=== PATIENT | female | born 1980 | race Two or more races ===

== ENCOUNTER 2018-05-01 17:23 | Inpatient (IN) | payer BC ==
[~2018-05-01] VITALS: Ht 157.5 cm; Wt 86.2 kg
[2018-05-01] MEDS ORDERED: ACETAMINOPHEN 325 MG TAB PO ONE (18:00)
[2018-05-01 18:30] LABS: Basophils # (auto) 0 uL; Basophils % (auto) 0.3 % (0.0-2.0); Eosinophils # (auto) 0 uL; Hemoglobin 11.5 g/dL (12.2-16.2); Neutrophils # (auto) 9.3 uL
[2018-05-01 18:31] LABS: Eosinophils % (auto) 0.3 % (0.0-7.0); Hematocrit 35.5 % (36.0-46.0); Lymphocytes # (auto) 1.8 uL; Lymphocytes % (auto) 14.6 % (10.0-50.0); Mean Corpuscular Hemoglobin 25.4 pg (28.0-32.0); Mean Corpuscular Hgb Conc. 32.4 g/dL (32.0-36.0); Mean Corpuscular Volume 78.2 fL (80.0-100.0); Monocytes # (auto) 1.2 uL; Monocytes % (auto) 9.8 % (0.0-12.0); Platelet Count (auto) 283 10^3/uL (140-450); Red Blood Cells 4.54 10^6/uL (4.0-5.20); Red Cell Distribution Width 18.2 % (11.8-14.3); White Blood Cell 12.4 10^3/uL (4.4-10.8)
[2018-05-01 18:47] LABS: Albumin 2.5 g/dL (3.4-5.0); Amylase 51 U/L (25-115); Anion Gap 11 (5-15); BUN/Creatinine Ratio 7.2; Blood Urea Nitrogen 8 mg/dL (7-18); Calcium 8.3 mg/dL (8.5-10.1); Carbon Dioxide 20 mmol/L (21-32); Chloride 101 mmol/L (98-107); GFR African American 71 mL/min; GFR Non-African American 59 mL/min; Glucose 97 mg/dL (74-106); Lipase 161 U/L (73-393); Sodium 132 mmol/L (136-145)
[2018-05-01 19:00] LABS: Alanine Aminotransferase 56 U/L (13-56); Alkaline Phosphatase 224 U/L (45-117); Aspartate Aminotransferase 30 U/L (15-37); Bilirubin, Total 0.6 mg/dL (0.2-1.0); Total Protein 7.9 g/dL (6.4-8.2)
[2018-05-01] MEDS ORDERED: PANTOPRAZOLE 40 MG/10 ML VIAL IV ONE (19:00)
[2018-05-01] MEDS ORDERED: SODIUM CHLORIDE 0.9% 500 ML IV ONE (19:00)
[2018-05-01] MEDS ORDERED: MORPHINE SULFATE 4 MG/ML SYR/VIAL IV ONE (19:00)
[2018-05-01] MEDS ORDERED: ONDANSETRON HCL 4 MG/2 ML VIAL IV ONE (19:00)
[2018-05-01] MEDS ORDERED: LEVOFLOXACIN 500MG 100 ML IV ONE (19:30)
[2018-05-01] MEDS ORDERED: NITROGLYCERIN 0.4 MG SL TAB SL PRN (19:45)
[2018-05-01] MEDS ORDERED: DEXTROSE (50%) 50ML SYRG IV PRN (19:45)
[2018-05-01] MEDS ORDERED: MORPHINE SULFATE 4 MG/ML SYR/VIAL IV PRN ×2 (19:45)
[2018-05-01] MEDS ORDERED: cefTRIAXone 1GM/50ML D5W 50 ML IV ONE (19:45)
[2018-05-01] MEDS ORDERED: POTASSIUM EFFERVESENT TAB 25 MEQ PO ONE (19:45)
[2018-05-01] MEDS ORDERED: TEMAZEPAM 15 MG CAP PO PRN (19:45)
[2018-05-01] MEDS ORDERED: ACETAMINOPHEN 325 MG TAB PO PRN (19:45)
[2018-05-01] MEDS ORDERED: DOCUSATE SOD 100 MG CAP PO PRN (19:45)
[2018-05-01] MEDS ORDERED: VANCOMYCIN PER PHARMACY 0 MG IV SCH (19:45)
[2018-05-01] MEDS ORDERED: SODIUM CHLORIDE 0.9% 1,000 ML IV ONE (20:00)
[2018-05-01] MEDS ORDERED: VANCOMYCIN 1GM/250ML 250 ML IV ONE ×2 (20:30→22:15)
[2018-05-01] MEDS: SODIUM CHLORIDE 0.9% 1,000 ML IV SCH ×3 (20:30→23:26)
[2018-05-01 21:07] LABS: Urine Bacteria MANY /hpf (None Seen); Urine Blood 2+ /uL (Negative); Urine Specific Gravity 1.005 (1.001-1.035); Urine WBC 54 /hpf (0 - 5)
[2018-05-01] MEDS: InsuLIN REG 1unit/0.01ml Soln (100units/ml) SC SCH (22:00)
[2018-05-01] MEDS: TOPIRAMATE PO SCH (22:00)
[2018-05-01 22:03] VITALS: BP 99/61
[2018-05-01] MEDS: ONDANSETRON HCL 4 MG/2 ML VIAL IV PRN (23:00)
[2018-05-01] MEDS: FAMOTIDINE 20 MG TAB PO SCH (23:24)
[2018-05-01] MEDS: OSELTAMIVIR 75 MG CAP PO SCH (23:24)
[2018-05-01] MEDS: ACCU-CHEK COMFORT CURVE STRIP VI SCH (23:25)
[2018-05-01 23:52] VITALS: BP 99/61
[2018-05-02] VITALS (7 sets, daily range): BP systolic 83–107; BP diastolic 42–77
[2018-05-02] MEDS ORDERED: TOPI1CAP23 OR (00:06)
[2018-05-02] MEDS ORDERED: GLIM1TAB2 PO (00:06)
[2018-05-02] MEDS ORDERED: OSEL75CA11 PO (00:06)
[2018-05-02] MEDS ORDERED: guaiFENesin 200 MG/10 ML UD GT PRN (05:15)
[2018-05-02 06:01] LABS: Basophils # (auto) 0 uL; Eosinophils # (auto) 0.1 uL; Hemoglobin 10.3 g/dL (12.2-16.2); Lymphocytes # (auto) 1.7 uL; Neutrophils # (auto) 6.9 uL; Red Cell Distribution Width 17.9 % (11.8-14.3); White Blood Cell 9.7 10^3/uL (4.4-10.8)
[2018-05-02 06:03] LABS: Basophils % (auto) 0.4 % (0.0-2.0); Eosinophils % (auto) 1.1 % (0.0-7.0); Hematocrit 31.6 % (36.0-46.0); Lymphocytes % (auto) 17.6 % (10.0-50.0); Mean Corpuscular Hemoglobin 25.7 pg (28.0-32.0); Mean Corpuscular Hgb Conc. 32.5 g/dL (32.0-36.0); Mean Corpuscular Volume 79.1 fL (80.0-100.0); Monocytes % (auto) 9.8 % (0.0-12.0); Neutrophils % (auto) 71.1 % (37.0-80.0); Platelet Count (auto) 257 10^3/uL (140-450)
[2018-05-02 06:16] LABS: Calcium 7.6 mg/dL (8.5-10.1); Potassium 3.4 mmol/L (3.5-5.1)
[2018-05-02 06:19] LABS: Albumin 2.1 g/dL (3.4-5.0); BUN/Creatinine Ratio 7.6
[2018-05-02 06:32] LABS: Bilirubin, Total 0.5 mg/dL (0.2-1.0); Total Protein 6.7 g/dL (6.4-8.2)
[2018-05-02] MEDS: InsuLIN REG 1unit/0.01ml Soln (100units/ml) SC SCH ×4 (06:55→21:53)
[2018-05-02] MEDS: ACCU-CHEK COMFORT CURVE STRIP VI SCH ×4 (06:56→21:53)
[2018-05-02] MEDS ORDERED: Glucerna Carbsteady SHAKE Vanilla 8oz PO SCH (08:00)
[2018-05-02] MEDS: HYDROcodone-ACET 5/325MG TAB PO PRN ×3 (08:15→20:45)
[2018-05-02] MEDS: cefTRIAXone 1GM/50ML D5W 50 ML IV SCH (09:26)
[2018-05-02] MEDS: OSELTAMIVIR 75 MG CAP PO SCH (09:27)
[2018-05-02] MEDS: FAMOTIDINE 20 MG TAB PO SCH ×2 (09:27→21:53)
[2018-05-02] MEDS: MULTIPLE VITAMIN TAB PO SCH (09:27)
[2018-05-02] MEDS ORDERED: VANCOMYCIN 750 MG in D5W 5% 250 ML IV SCH (10:00)
[2018-05-02] MEDS ORDERED: POTASSIUM CHL 20 Meq TABLET PO ONE (11:00)
[2018-05-02] MEDS: guaiFENesin 200 MG/10 ML UD PO PRN (12:36)
[2018-05-02] MEDS: ONDANSETRON HCL 4 MG/2 ML VIAL IV PRN (20:45)
[2018-05-02] MEDS: TOPIRAMATE PO SCH (21:52)
[2018-05-02] MEDS: SODIUM CHLORIDE 0.9% 1,000 ML IV SCH (21:52)
[2018-05-03] VITALS (7 sets, daily range): BP systolic 90–105; BP diastolic 51–61
[2018-05-03] MEDS: HYDROcodone-ACET 5/325MG TAB PO PRN ×3 (03:18→18:07)
[2018-05-03] MEDS: guaiFENesin 200 MG/10 ML UD PO PRN ×4 (03:19→22:42)
[2018-05-03] MEDS: SODIUM CHLORIDE 0.9% 1,000 ML IV SCH ×3 (05:02→22:10)
[2018-05-03 06:42] LABS: Basophils # (auto) 0 uL; Basophils % (auto) 0.3 % (0.0-2.0); Eosinophils # (auto) 0.2 uL; Hemoglobin 9.7 g/dL (12.2-16.2); Lymphocytes # (auto) 1.7 uL; Mean Corpuscular Hgb Conc. 32.3 g/dL (32.0-36.0); Monocytes # (auto) 0.6 uL
[2018-05-03 06:44] LABS: Eosinophils % (auto) 2.6 % (0.0-7.0); Hematocrit 30.1 % (36.0-46.0); Lymphocytes % (auto) 19.6 % (10.0-50.0); Mean Corpuscular Hemoglobin 25.6 pg (28.0-32.0); Mean Corpuscular Volume 79.3 fL (80.0-100.0); Monocytes % (auto) 7.2 % (0.0-12.0); Neutrophils # (auto) 6.2 uL; Neutrophils % (auto) 70.3 % (37.0-80.0); Platelet Count (auto) 287 10^3/uL (140-450); Red Blood Cells 3.79 10^6/uL (4.0-5.20); Red Cell Distribution Width 17.7 % (11.8-14.3); White Blood Cell 8.8 10^3/uL (4.4-10.8)
[2018-05-03] MEDS: InsuLIN REG 1unit/0.01ml Soln (100units/ml) SC SCH (06:51)
[2018-05-03] MEDS: ACCU-CHEK COMFORT CURVE STRIP VI SCH (06:51)
[2018-05-03 06:58] LABS: Calcium 7.8 mg/dL (8.5-10.1); Potassium 3.5 mmol/L (3.5-5.1)
[2018-05-03 09:30] LABS: Eosinophils # (auto) 0.2 uL; Monocytes # (auto) 0.5 uL
[2018-05-03 09:32] LABS: Basophils # (auto) 0 uL; Basophils % (auto) 0.5 % (0.0-2.0); Eosinophils % (auto) 2.3 % (0.0-7.0); Hematocrit 32.2 % (36.0-46.0); Hemoglobin 10.1 g/dL (12.2-16.2); Lymphocytes % (auto) 23.9 % (10.0-50.0); Mean Corpuscular Hemoglobin 25.2 pg (28.0-32.0); Mean Corpuscular Hgb Conc. 31.5 g/dL (32.0-36.0); Monocytes % (auto) 5.8 % (0.0-12.0); Neutrophils # (auto) 5.7 uL; Neutrophils % (auto) 67.5 % (37.0-80.0); Platelet Count (auto) 333 10^3/uL (140-450); Red Blood Cells 4.02 10^6/uL (4.0-5.20); Red Cell Distribution Width 17.9 % (11.8-14.3); White Blood Cell 8.5 10^3/uL (4.4-10.8)
[2018-05-03 09:41] LABS: BUN/Creatinine Ratio 8.8; Calcium 7.9 mg/dL (8.5-10.1); Potassium 3.5 mmol/L (3.5-5.1)
[2018-05-03] MEDS: FAMOTIDINE 20 MG TAB PO SCH ×2 (09:45→22:10)
[2018-05-03] MEDS: MULTIPLE VITAMIN TAB PO SCH (09:45)
[2018-05-03] MEDS: cefTRIAXone 1GM/50ML D5W 50 ML IV SCH (09:45)
[2018-05-03] MEDS: TOPIRAMATE PO SCH (22:10)
[2018-05-04] MEDS: HYDROcodone-ACET 5/325MG TAB PO PRN (00:56)
[2018-05-04] MEDS: guaiFENesin 200 MG/10 ML UD PO PRN (04:40)
[2018-05-04] MEDS: SODIUM CHLORIDE 0.9% 1,000 ML IV SCH ×2 (06:15→14:22)
[2018-05-04 08:34] VITALS: BP 95/56
[2018-05-04] MEDS: MULTIPLE VITAMIN TAB PO SCH (11:38)
[2018-05-04] MEDS: cefTRIAXone 1GM/50ML D5W 50 ML IV SCH (11:38)
[2018-05-04] MEDS: FAMOTIDINE 20 MG TAB PO SCH (11:39)
[2018-05-04 13:00] VITALS: BP 98/64
== END 2018-05-04 15:26 | disposition home or self-care (01) | DRG 872 ==
LOC: ER 17:23 → EDBD 19:45 → TELE 19:45 → TELE-CENTR 22:03 → CENTRAL 05-03 20:26
PROVIDERS: ADMIT Internal Medicine; ATTEND Internal Medicine
DX: A41.9 Sepsis, unspecified organism (principal); E44.0 Moderate protein-calorie malnutrition; E87.1 Hypo-osmolality and hyponatremia; N10 Acute pyelonephritis; B96.20 Unspecified Escherichia coli [E. coli] as the cause of diseases classified elsewhere; D63.8 Anemia in other chronic diseases classified elsewhere; E11.21 Type 2 diabetes mellitus with diabetic nephropathy; E11.22 Type 2 diabetes mellitus with diabetic chronic kidney disease; E66.9 Obesity, unspecified; G43.909 Migraine, unspecified, not intractable, without status migrainosus; E87.6 Hypokalemia; N18.3 Chronic kidney disease, stage 3 (moderate); E86.0 Dehydration; E83.51 Hypocalcemia; Z83.3 Family history of diabetes mellitus; R16.0 Hepatomegaly, not elsewhere classified; Z68.34 Body mass index [BMI] 34.0-34.9, adult
CPT/HCPCS: 36415; 71046; 74176; 76705; 80048; 80053; 81001; 82150; 82962; 83036; 83540; 83605; 83690; 84484; 85025; 87040; 87086; 87088; 87186; 87804; 93005; 96365; 96367; 96375; C9113; G0378; J0696; J1956; J2405; J7060

== ENCOUNTER 2020-10-08 07:41 | Emergency (ER) | payer BC ==
[~2020-10-08] VITALS: Ht 157.5 cm; Wt 86.2 kg
[~2020-10-08 07:41] MED LIST: GLIM-5 PO; OSEL75CA5 PO; TOPI1CAP23 OR
[2020-10-08 08:28] VITALS: BP 118/63
[2020-10-08] MEDS ORDERED: KETOROLAC TROMETH 30 MG/ML 1ML VIAL IV ONE (08:30)
[2020-10-08] MEDS ORDERED: SODIUM CHLORIDE 0.9% 1,000 ML IVB ONE (08:30)
[2020-10-08 08:40] LABS: Urine Bacteria MOD /hpf (None Seen); Urine Blood 3+ /uL (Negative); Urine Mucus FEW (None Seen); Urine Specific Gravity 1.012 (1.001-1.035); Urine WBC 13 /hpf (0 - 5)
[2020-10-08 08:46] LABS: Basophils # (auto) 0 10 ^3/uL (0-0.2); Basophils % (auto) 0.3 % (0.0-2.0); Eosinophils # (auto) 0.1 10 ^3/uL (0-0.8); Eosinophils % (auto) 1.1 % (0.0-7.0); Hematocrit 38.4 % (36.0-46.0); Lymphocytes # (auto) 1.9 10 ^3/uL (0.4-5.4); Mean Corpuscular Hemoglobin 27.6 pg (28.0-32.0); Mean Corpuscular Hgb Conc. 33.7 g/dL (32.0-36.0); Monocytes # (auto) 0.5 10 ^3/uL (0-1.3); Neutrophils # (auto) 8.4 10 ^3/uL (1.6-8.6); Neutrophils % (auto) 76.6 % (37.0-80.0); Nucleated Red Blood Cells % 0.1 %; Platelet Count (auto) 244 10^3/uL (140-450); Red Blood Cells 4.69 10^6/uL (4.0-5.20); Red Cell Distribution Width 16.2 % (11.8-14.3)
[2020-10-08 09:05] LABS: Albumin 3.3 g/dL (3.4-5.0); Calcium 8.9 mg/dL (8.5-10.1); Potassium 3.9 mmol/L (3.5-5.1)
[2020-10-08 09:09] LABS: Bilirubin, Total 0.4 mg/dL (0.2-1.0); Total Protein 7.3 g/dL (6.4-8.2)
[2020-10-08] MEDS ORDERED: cefTRIAXone 1GM/50ML D5W 50 ML IV ONE (09:15)
[2020-10-08] MEDS ORDERED: ONDANSETRON HCL 4 MG/2 ML VIAL IV ONE (09:15)
== END 2020-10-08 11:14 | disposition home or self-care (01) ==
LOC: ER 07:41
DX: R10.12 Left upper quadrant pain (principal); N39.0 Urinary tract infection, site not specified; Z79.899 Other long term (current) drug therapy
CPT/HCPCS: 36415; 74176; 80053; 81001; 83690; 85025; 87086; 96361; 96365; 96375; 99284; J0696; J1885; J2405; J7030